=== PATIENT | male | born 1990 | race Caucasian/White ===

== ENCOUNTER 2021-01-14 16:43 | Emergency (ER) | payer SELFPAY ==
[~2021-01-14] VITALS: Ht 177.8 cm; Wt 84.0 kg
[2021-01-14] MEDS ORDERED: BO1 TP (17:12)
[2021-01-14] MEDS ORDERED: IBUP-2029 MT (17:12)
[2021-01-14] MEDS ORDERED: IBUPROFEN 600MG TABLET PO ONE (17:15)
[2021-01-14] MEDS ORDERED: LIDOCAINE HCL/PF 1% 10 MG/ML 5ML VIAL INFIL ONE (17:15)
[2021-01-14] MEDS ORDERED: BACITRACIN ZINC OINT UDPKT TOP ONE (17:15)
[2021-01-14 17:54] VITALS: BP 141/84
== END 2021-01-14 17:55 | disposition home or self-care (01) ==
LOC: ER 17:28
DX: S51.812A Laceration without foreign body of left forearm, initial encounter (principal); W26.0XXA Contact with knife, initial encounter; Y93.89 Activity, other specified; Y92.018 Other place in single-family (private) house as the place of occurrence of the external cause
CPT/HCPCS: 12002; 99282; J3490